=== PATIENT | female | born 1995 | race Caucasian/White ===

== ENCOUNTER 2021-03-23 09:30 | Emergency (ER) | payer MEDICAID ==
[~2021-03-23] VITALS: Ht 172.7 cm; Wt 86.2 kg
[2021-03-23 09:45] VITALS: BP_SYST 154
--- NOTE | 2021-03-23 09:45 | NUR ---
Pt to remain in triage for evaluation.
--- NOTE | 2021-03-23 09:45 | NUR ---
Pt AAO and ambulatory reporting lump on right side of neck causing worsening pain. Pt denies any prior medical history.
--- NOTE | 2021-03-23 09:46 | NUR ---
Dr. Mantilla to triage for assessment.
[2021-03-23] MEDS ORDERED: AZIT-62 PO (09:53)
[2021-03-23 10:03] VITALS: BP_SYST 154
--- NOTE | 2021-03-23 10:04 | NUR ---
Patient given written and verbal discharge instructions and verbalizes understanding. Dr. Jose Rafael STEVE MD discussed with patient the results and treatment provided. Patient in stable condition. ID arm band removed. Rx per MD. Patient educated on pain management and to follow up with PMD. Pain Scale 0/10. Opportunity for questions provided and answered. Medication side effect fact sheet provided.
== END 2021-03-23 10:04 | disposition home or self-care (01) ==
LOC: SED 09:30
DX: I88.9 Nonspecific lymphadenitis, unspecified (principal); Z79.899 Other long term (current) drug therapy
CPT/HCPCS: 99282